=== PATIENT | male | born 1965 | race African-American/Black ===

== ENCOUNTER → 2019-12-25 | Day surgery (SDC) | payer OTHER ==
[2019-12-18 15:36] VITALS: BMI 32.4
[~2019-12-25] MED LIST: BUPIVACAINE HCL 0.25% 125 MG/50 ML VIAL ONE; BUPIVACAINE HCL/PF 0.25% (2.5MG/ML) 10 ML VIAL IM ONE; CEFAZOLIN 2 GM in DEXTROSE 5%-WATER - 50 ML IVPB ONE; METOPROLOL TARTRATE 5 MG/5 ML VIAL ONE; MIDAZOLAM HCL 2 MG/2 ML SINGLE DOSE VIAL ONE; PROPOFOL 20 ML ONE; ROCURONIUM BROMIDE 50 MG/5 ML SYRINGE ONE; fentaNYL CITRATE 250 MCG/5 ML VIAL ONE; methylPREDNISolone ACET (DEPO) 40 MG/1 ML VIAL IM ONE; methylPREDNISolone ACET (DEPO) 40 MG/1 ML VIAL ONE
--- NOTE | 2019-12-25 12:18 | OP ---
Operative Note - Note: Operative Date: 12/25/19 Pre-Operative Diagnosis: Right knee pain Operation: Right knee arthroscopy with removal of loose bodies Post-Operative Diagnosis: Same as Pre-op Surgeon: Anthony Martinez Anesthesia: General Estimated Blood Loss (mls): 5 Fluid Volume Replaced (mls): 500 Operative Report Dictated: Yes
[2019-12-25 13:26] VITALS: TEMP 98.7
[2019-12-25 13:52] VITALS: BP 120/68; PULSE 60
--- NOTE | 2019-12-25 13:57 | OP ---
DATE OF OPERATION: DATE OF DICTATION: 12/25/2019 SURGEON: Anthony Martinez MD PREOPERATIVE DIAGNOSIS: Medial meniscal tear, right knee. POSTOPERATIVE DIAGNOSIS: Tricompartment osteoarthritis, right knee. OPERATION PERFORMED: Arthroscopy, right knee with lavage and removal of loose bodies. ANESTHESIA: Conscious sedation with spinal block. ANTIBIOTICS GIVEN: 2 g Ancef. OPERATION DETAILS: Patient correctly identified. Brought into the operating room. Placed supine on operating table. Right lower extremity was prepped, draped in the routine manner with Betadine scrub solution, wiped off with alcohol, DuraPrep applied. A free drape was applied to the knee. The knee was flexed. The portal was an anterolateral portal in standard position. The arthroscopic instrumentation introduced into the knee. The knee revealed the following: The synovium appeared completely normal. The retropatellar surface had grade III Outerbridge changes of the hyaline cartilage diffusely throughout the patella. The trochlear groove had extensive Outerbridge III and IV changes and tram-track streaks in the trochlear groove right now to the intercondylar notch noted accordingly. The medial femoral condyle had extensive level III and IV Outerbridge changes. The tibial plateau level II and III Outerbridge changes. The meniscus was completely normal. The intercondylar notch was normal. The lateral joint compartment placed in a figure-4 position. I was easily able to get into the lateral compartment. This showed changes both on the femoral and tibial surface. These were Outerbridge level II changes. The meniscus was completely normal. The popliteal hiatus was normal. A number of loose bodies were noted. These were liberally washed out of the joint thus removing loose bodies at this procedure as well. The joint was thoroughly lavaged with 5 L of saline. Marcaine with 40 mg of Depo-Medrol instilled into the joint. The skin portal was closed with 3-0 nylon. MD DARIEN Abrams/[id number]
== END | disposition home or self-care (01) ==
LOC: FASU 08:17
PROVIDERS: ATTEND Orthopaedic Surgery Orthopaedic Surgery of the Spine
PROC: 0SCC4ZZ Extirpation of Matter from Right Knee Joint, Percutaneous Endoscopic Approach (ICD-10-PCS; principal; 2019-12-25 11:30)
DX: M17.11 Unilateral primary osteoarthritis, right knee (principal); M23.41 Loose body in knee, right knee
CPT/HCPCS: 94760